=== PATIENT | male | born 1995 | race Caucasian/White ===

== ENCOUNTER 2018-03-23 21:09 | Emergency (ER) | payer OTHER ==
[2018-03-23 21:26] VITALS: BP 140/89; PULSE 75; RESP 19; TEMP 97.5
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
== END 2018-03-24 01:22 | disposition home or self-care (01) ==
LOC: EC 21:09
DX: F41.9 Anxiety disorder, unspecified (principal); F32.9 Major depressive disorder, single episode, unspecified; I25.2 Old myocardial infarction; F17.200 Nicotine dependence, unspecified, uncomplicated; Z79.891 Long term (current) use of opiate analgesic; Z79.899 Other long term (current) drug therapy
CPT/HCPCS: 93005; 99283